=== PATIENT | female | born 1960 | race Hispanic/Latino ===

== ENCOUNTER 2017-07-22 13:16 | Inpatient (IN) | payer MEDICAID, OTHER ==
[2017-07-22 13:16] VITALS: BMI 21.6
[2017-07-22 14:26] LABS: BASO % 0.3 % (0.0-2.0); EOS % 0.2 % (0.0-4.0); LYMPH # 3.8 K/uL (1.0-4.3); LYMPH % 44.4 % (20.0-40.0); MEAN CELL VOLUME 110.4 fL (81.0-99.0); MEAN CORPUSCULAR HEMOGLOBIN 38.2 pg (27.0-31.0); MEAN CORPUSCULAR HGB CONC 34.6 g/dL (33.0-37.0); MONO # 0.4 K/uL (0.0-0.8); MONO % 4.5 % (0.0-10.0); NEUT # 4.3 K/uL (1.8-7.0); NEUT % 50.6 % (50.0-75.0); RBC 3.13 Mil/uL (3.80-5.20); RED CELL DISTRIBUTION WIDTH 16.9 % (11.5-14.5); WHITE BLOOD COUNT 8.6 K/uL (4.8-10.8)
[2017-07-22 14:33] LABS: HCG,QUALITATIVE URINE NEGATIVE (NEGATIVE)
[2017-07-22 14:40] LABS: URINE BILIRUBIN NEGATIVE (NEGATIVE); URINE BLOOD 2+ (NEGATIVE); URINE CLARITY Hazy (Clear); URINE COLOR Yellow (YELLOW); URINE GLUCOSE (UA) 1+ mg/dL (Normal); URINE LEUKOCYTE ESTERASE NEG Leu/uL (Negative); URINE PROTEIN NEGATIVE (NEGATIVE); URINE UROBILINOGEN NORMAL mg/dL (0.2-1.0)
[2017-07-22 14:41] LABS: ALB/GLOB RATIO 1.4 (1.0-2.1); ALBUMIN 4.2 g/dL (3.5-5.0); ALT/SGPT 13 U/L (9-52); AST/SGOT 30 U/L (14-36); BLOOD UREA NITROGEN 11 mg/dL (7-17); GFR AFRICAN-AMERICAN > 60; GFR NON-AFRICAN AMERICAN > 60
[2017-07-22 14:43] LABS: SQUAMOUS EPITHIAL 2 /hpf (0-5)
[2017-07-22 14:45] LABS: BARBITURATES, UR NEGATIVE (NEGATIVE); OPIATES, UR NEGATIVE (NEGATIVE); PHENCYCLIDINE, UR NEGATIVE (NEGATIVE)
[2017-07-22 15:10] LABS: BENZODIAZEPINES, UR POSITIVE (NEGATIVE)
--- NOTE | 2017-07-22 16:20 | C.PDOC ---
History Of Present Illness Patient is a 57 y/o female with a history of longstanding addiction to cocaine and crack, who presents to the ER requesting detox from alcohol. She reports having been sober and off drugs for years, but started drinking alcohol over the past year with increasing frequency. No chest pain, shortness of breath, or abdominal pain. Patient reports having mild intermittent constipation. Time Seen by Provider: 07/22/17 13:28 Chief Complaint (Nursing): Substance Abuse History Per: Patient History/Exam Limitations: no limitations Onset/Duration Of Symptoms: Days Current Symptoms Are (Timing): Still Present Past Medical History Reviewed: Historical Data, Nursing Documentation, Vital Signs Vital Signs: Last Vital Signs Temp 97.9 F 07/22/17 16:39 Pulse 100 H 07/22/17 16:39 Resp 20 07/22/17 16:39 BP 117/69 07/22/17 16:39 Pulse Ox 98 07/22/17 16:39 - Medical History PMH: Anxiety, Depression Denies: Diabetes, Hepatitis, HIV, HTN, Chronic Kidney Disease, Seizures, Sexually Transmitted Disease Family History: States: No Known Family Hx - Social History Hx Tobacco Use: Yes Hx Alcohol Use: Yes Hx Substance Use: No - Immunization History Hx Tetanus Toxoid Vaccination: No Hx Influenza Vaccination: No Hx Pneumococcal Vaccination: No Review Of Systems Except As Marked, All Systems Reviewed And Found Negative. Constitutional: Negative for: Fever Cardiovascular: Negative for: Chest Pain Respiratory: Negative for: Shortness of Breath Gastrointestinal: Positive for: Constipation. Negative for: Abdominal Pain Psych: Positive for: Other (alcohol abuse) Physical Exam - Physical Exam Appears: Non-toxic, No Acute Distress Skin: Normal Color, Warm, Dry Head: Atraumatic, Normacephalic Eye(s): bilateral: Normal Inspection, PERRL, EOMI Nose: Normal Oral Mucosa: Moist Neck: Normal ROM, Supple Chest: Symmetrical Cardiovascular: Rhythm Regular Respiratory: Normal Breath Sounds, No Accessory Muscle Use Gastrointestinal/Abdominal: Normal Exam, Soft, No Tenderness, No Distention Extremity: Bilateral: Atraumatic, Normal Color And Temperature, Normal ROM Neurological/Psych: Oriented x3, Normal Speech ED Course And Treatment - Laboratory Results Result Diagrams: 07/22/17 14:23 07/22/17 14:23 Medical Decision Making Medical Decision Making: Time: 14:04 Initial Plan: * Alcohol serum * Urine drug screen * CMP * CBC * Urine HCG, qualitative * Urinalysis * 1 patch Nicotine * 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 Jaquez for detox. Disposition - Disposition Disposition: HOSPITALIZED Disposition Time: 16:19 Condition: STABLE - Clinical Impression Clinical Impression: Alcohol abuse - Scribe Statement The provider has reviewed the documentation as recorded by the Scribe (Jo Ann Ponce) Provider Attestation: All medical record entries made by the Scribe were at my direction and personally dictated by me. I have reviewed the chart and agree that the record accurately reflects my personal performance of the history, physical exam, medical decision making, and the department course for this patient. I have also personally directed, reviewed, and agree with the discharge instructions and disposition. Decision To Admit - Pt Status Changed To: Hospital Disposition Of: Inpatient - Admit Certification Admit to Inpatient:: After my assessment, the patient will require hospitalization for at least two midnights. This is because of the severity of symptoms shown, intensity of services needed, and/or the medical risk in this patient being treated as an outpatient. - InPatient: Physician Admission Certification: I certify that this patient requires 2 or more midnights of care for the following reason:: needs alcohol detox - . Bed Request Type: Detox Patient Diagnosis: Alcohol abuse
--- NOTE | 2017-07-22 16:32 | PCM.BM ---
<Luna Gramajo - Last Filed: 07/22/17 16:30> Treatment Plan Problems - Problems identified on initial assessmt potiential for autonomic instabilty Date Initiated: 07/22/17 Time Initiated: 16:31 Assessment reference: NA Status: Active Treatment assets and liabiliti Patient Assests: ADL independent, physically healthy Patient Liabilities: substance abuse - Milieu Protocol Maintain good personal hygiene: daily Encourage regular showers, daily Remind patient to perform daily oral care, daily Assist patient to perform ADL's Maintain personal safety: every shift Educate patient to report safety concerns to staff, every shift Monitor environment for contraband/sharps Medication safety: Monitor for expected outcome, potential side effects: every shift, Assess barriers to learning: every shift, Assess readiness for medication education: every shift <Ivette Jaquez - Last Filed: 07/23/17 16:49> - Diagnosis (1) Alcohol use disorder, severe, dependence Status: Acute Interventions: 07/23/17 16:49 * Assess 7x/week regarding severity of withdrawal * Educate regarding risks, benefits, side effects and alternatives of medications * Use Motivational Interviewing for abstinence * Use CBT for relapse prevention * Medication management for withdrawal symptoms * Encourage medication assisted treatment *
[2017-07-22] MEDS: Multiple Vitamins Tab PO SCH (18:12)
[2017-07-23] MEDS: Multiple Vitamins Tab PO SCH (09:19)
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
[2017-07-24] MEDS: Multiple Vitamins Tab PO SCH (09:24)
--- NOTE | 2017-07-24 13:44 | PCM.PYCHPN ---
Psychiatric Progress Note - Psychiatric Progress Note Patient seen today, length of contact: 15 min Patient Chief Complaint: "I doing fine" Problems Identified/Issues Discussed: The pt is seen, chart reviewed, case discussed with staff. Patient admits to feeling some what anxious and irritable but otherwise doing well. She is compliant with medications and reports no side-effects. Symptoms improving and patient needs more time to stabilize. After care discussed, support and psychoeducation given. Medication Change: Yes (detox changes daily) Medical Record Reviewed: Yes Mental Status Examination - Cognitive Function Orientation: Person, Place, Situation, Time Memory: Intact Attention: WNL Concentration: WNL Association: WNL Fund of Knowledge: WNL - Mood Mood: Anxious - Affect Affect: Broad - Speech Speech: Appropriate - Formal Thought Process Formal Thought Process: No Impairment - Suicidal Ideation Suicidal Ideation: No - Homicidal Ideation Homicidal Ideation: No Goal/Treatment Plan - Goal/Treatment Plan Need for Continued Stay: Remain at risks for inpatient hospitalization, Severe depression anxiety, Discharge may exacerbated symptoms, Severe functional impairment Progress Toward Problem(s) and Goals/Treatment Plan: Plan: Librium detox Gabapentin for augmentation Zoloft for CARY, panic d/o Indiv tx and relax. exercises for anxiety As needed medications All risks, benefits and alternatives of the meds discussed, and the pt agreed and understood. Attend groups and activities Supportive therapy and psychoeducation [place] for abstinence CBT for relapse prevention Encourage MAT Refer to rehab or IOP, and self-help groups Smoking cessation with [place] Nicotine patch Estimated Date of D/C: 07/27/17 - Smoking Cessation Smoking Cessation Initiated: Yes
[2017-07-24] MEDS: Hemorrohoidal Ointment (2 oz) TOP PRN (21:49)
[2017-07-25] MEDS: Multiple Vitamins Tab PO SCH (09:29)
--- NOTE | 2017-07-25 12:13 | PCM.PYCHPN ---
Psychiatric Progress Note - Psychiatric Progress Note Patient seen today, length of contact: 16 min Patient Chief Complaint: "I am OK" Problems Identified/Issues Discussed: The pt is seen, chart reviewed, case discussed with staff. Support given, CBT and NH used briefly No new symptoms reported, improving slowly and needs more time No SEs from medications, risks discussed. After care discussed - IOP in [place] Medication Change: Yes (detox changes daily) Medical Record Reviewed: Yes Mental Status Examination - Cognitive Function Orientation: Person, Place, Situation, Time Memory: Intact Attention: WNL Concentration: WNL Association: WNL Fund of Knowledge: WNL - Mood Mood: Anxious - Affect Affect: Broad - Speech Speech: Appropriate - Formal Thought Process Formal Thought Process: No Impairment - Suicidal Ideation Suicidal Ideation: No - Homicidal Ideation Homicidal Ideation: No Goal/Treatment Plan - Goal/Treatment Plan Need for Continued Stay: Severe depression anxiety, Discharge may exacerbated symptoms, Severe functional impairment Progress Toward Problem(s) and Goals/Treatment Plan: Plan: Librium detox Gabapentin for augmentation Zoloft for CARY, panic d/o Indiv tx and relax. exercises for anxiety As needed medications All risks, benefits and alternatives of the meds discussed, and the pt agreed and understood. Attend groups and activities Supportive therapy and psychoeducation [place] for abstinence CBT for relapse prevention Encourage MAT Refer to rehab or IOP, and self-help groups Smoking cessation with [place] Nicotine patch Estimated Date of D/C: 07/27/17
[2017-07-26] MEDS: Hemorrohoidal Ointment (2 oz) TOP PRN (09:18)
[2017-07-26] MEDS: Multiple Vitamins Tab PO SCH (09:19)
[2017-07-27] MEDS: Multiple Vitamins Tab PO SCH (09:17)
[2017-07-27 10:16] VITALS: BP 127/78; PULSE 99; RESP 20; TEMP 98.6; O2SAT 99
--- NOTE | 2017-07-27 21:44 | PCM.PYCHPN ---
Psychiatric Progress Note - Psychiatric Progress Note Patient seen today, length of contact: 16 min Patient Chief Complaint: I FEEL GOOD TODAY IWANT TO GO HOME TOMORROW Problems Identified/Issues Discussed: AFTERCARE, TRIGGERS FOR RELAPSE HOW TO MANAGE CRAVINGS POST ACUTE WITHDRAWAL SYNDROME Medical Problems: NOTHING ACUTE Diagnostic Results: REVIEWED DSM 5 Symptoms Update: VERTIGO Medication Change: Yes (detox changes daily) Medical Record Reviewed: Yes Mental Status Examination - Cognitive Function Orientation: Person, Place, Situation, Time Memory: Intact Attention: WNL Concentration: WNL Association: WNL Fund of Knowledge: WNL - Mood Mood: Anxious - Affect Affect: Broad - Speech Speech: Appropriate - Suicidal Ideation Suicidal Ideation: No Goal/Treatment Plan - Goal/Treatment Plan Need for Continued Stay: Severe depression anxiety, Discharge may exacerbated symptoms, Severe functional impairment Progress Toward Problem(s) and Goals/Treatment Plan: ALCOHOL WITHDRAWAL LIBRIUM ALCOHOL USE DISORDER CBT [place] [facility] AND RECREATIONAL THERAPY INDIVIDUAL SUPPORTIVE PSYCHOTHERAPY Estimated Date of D/C: 07/27/17 - Smoking Cessation Smoking Cessation Initiated: No
== END 2017-07-27 10:35 | disposition home or self-care (01) | DRG 751 ==
LOC: C.ER 13:16 → C.7D 16:20
PROVIDERS: ADMIT Psychiatry & Neurology Psychiatry; ATTEND Psychiatry & Neurology Psychiatry
PROC: HZ2ZZZZ Detoxification Services for Substance Abuse Treatment (ICD-10-PCS; principal; 2017-07-22)
DX: F10.220 Alcohol dependence with intoxication, uncomplicated (principal); F14.90 Cocaine use, unspecified, uncomplicated; F10.230 Alcohol dependence with withdrawal, uncomplicated; F32.9 Major depressive disorder, single episode, unspecified; F41.1 Generalized anxiety disorder; K59.00 Constipation, unspecified; Z87.891 Personal history of nicotine dependence; F19.10 Other psychoactive substance abuse, uncomplicated; Y90.6 Blood alcohol level of 120-199 mg/100 ml